=== PATIENT | male | born 1965 | race Caucasian/White ===

== ENCOUNTER 2017-03-21 18:41 | Emergency (ER) | payer BC ==
[2017-03-21 18:52] VITALS: BP 142/86
--- NOTE | 2017-03-21 19:18 | UC ---
Respiratory Complaint HPI - HPI Summary HPI Summary: 51 yo male with one week hx of cough/sore throat/and wheezing no f/c no cp or sob some sinus pressure no /v/d now left eye red and goopy x hours no pain or fb senation - History of Current Complaint Chief Complaint: UCEye Stated Complaint: LEFT EYE COMPLAINT,SORE THROAT,COUGH Time Seen by Provider: 03/21/17 18:57 Hx Obtained From: Patient Onset/Duration: Gradual Onset Severity Initially: Moderate Severity Currently: Moderate Pain Intensity: 3 Pain Scale Used: 0-10 Numeric Character: Cough: Nonproductive Associated Signs And Symptoms: Positive: Wheezing, Nasal Congestion - Allergies/Home Medications Allergies/Adverse Reactions: Allergies Allergy/AdvReac Type Severity Reaction Status Date / Time Erythromycin AdvReac Abdominal Verified 03/21/17 18:52 Pain Home Medications: Home Medications Rotigotine [Neupro] 8 mg TD DAILY 03/21/17 [History Confirmed 03/21/17] PMH/Surg Hx/FS Hx/Imm Hx Previously Healthy: Yes Endocrine History: Dyslipidemia - Surgical History Surgical History: Yes Surgery Procedure, Year, and Place: VASECTOMY. T&A. umbilical hernia - Family History Known Family History: Positive: Other - ALS, leukemia - Social History Alcohol Use: Rare Substance Use Type: None Smoking Status (MU): Never Smoked Tobacco Review of Systems Constitutional: Negative Skin: Negative Eyes: Drainage, Eye Redness ENT: Negative, Nasal Discharge, Sinus Congestion Respiratory: Cough Cardiovascular: Negative Gastrointestinal: Negative Genitourinary: Negative Motor: Negative Neurovascular: Negative Musculoskeletal: Negative Neurological: Negative Psychological: Negative All Other Systems Reviewed And Are Negative: Yes Physical Exam Triage Information Reviewed: Yes Appearance: Well-Appearing, No Pain Distress, Well-Nourished Vital Signs: Initial Vital Signs Temp 98.2 F 03/21/17 18:46 Pulse 73 03/21/17 18:46 Resp 17 03/21/17 18:46 BP 142/86 03/21/17 18:46 Pulse Ox 97 03/21/17 18:46 Eyes: Positive: Conjunctiva Clear ENT: Positive: Hearing grossly normal, Nasal congestion. Negative: TM bulging, TM dull, TM red, Tonsillar swelling, Tonsillar exudate, Trismus, Muffled/hoarse voice Neck: Positive: Supple, Nontender Respiratory: Positive: Lungs clear, Normal breath sounds, No respiratory distress, Wheezing - with forced expiration Cardiovascular: Positive: RRR, No Murmur Musculoskeletal: Positive: ROM Intact, No Edema Neurological: Positive: Alert Psychological Exam: Normal Skin Exam: Normal UC Diagnostic Evaluation - Laboratory O2 Sat by Pulse Oximetry: 97 Respiratory Course/Dx - Differential Dx/Diagnosis Provider Diagnoses: acute bronchitis. conjunctivitis (L) Discharge - Discharge Plan Condition: Stable Disposition: HOME Prescriptions: Amoxicillin (*) [Amoxicillin 875 MG (*)] 875 mg PO BID #20 tab Polymyx/Trimethoprim OPTH* [Polytrim OPHTH*] 1 - 2 drop LEFT EYE QID #1 btl Patient Education Materials: Acute Bronchitis (ED), Conjunctivitis (ED) Referrals: Jose D Kenny MD [Primary Care Provider] - 3 Days (recheck in 3-7 days if not better) Additional Instructions: you can also try ZADITOR eye drops OTC for eye irritation
== END 2017-03-21 19:16 | disposition home or self-care (01) ==
LOC: UCCORT 18:41
DX: J20.9 Acute bronchitis, unspecified (principal); H10.9 Unspecified conjunctivitis; R48.0 Dyslexia and alexia
CPT/HCPCS: 99212; G0463